=== PATIENT | male | born 1980 | race Caucasian/White ===

== ENCOUNTER 2017-01-29 12:44 | Emergency (ER) | payer MEDICARE, OTHER ==
[~2017-01-29] VITALS: Ht 175.3 cm; Wt 75.0 kg
[2017-01-29 12:51] VITALS: BP 115/73; PULSE 98; RESP 20; O2SAT 96
[2017-01-29] MEDS ORDERED: LIDOCAINE HCL 1% 50 ML VIAL INFIL ONE (13:15)
[2017-01-29] MEDS ORDERED: ASPI81CH CHEW (13:25)
[2017-01-29] MEDS ORDERED: ZYPR7.5T PO (13:25)
[2017-01-29] MEDS ORDERED: ATEN100T PO (13:25)
[2017-01-29] MEDS ORDERED: CELE20TA PO (13:25)
--- NOTE | 2017-01-29 13:32 | RADRPT ---
EXAM DATE/TIME: 01/29/2017 13:25 [place] COMPARISON: No previous studies available for comparison. INDICATIONS : Chest pain. MEDICAL HISTORY : Cardiomyopathy SURGICAL HISTORY : Pacemaker. CABG. ENCOUNTER: Initial ACUITY: 3 days PAIN SCORE: 3/10 LOCATION: Center chest FINDINGS: The lungs are clear without infiltrate, nodule, or mass. There is no appreciable pleural effusion fo r technique. Heart and mediastinum are unremarkable. There is evidence for prior median sternotomy. Left subclavian pacer wires are present with tips in the right atrium and right ventricle. CONCLUSION: No acute cardiopulmonary disease. Elijah Ruiz MD on January 29, 2017 at 13:30 Board Certified Radiologist. This report was verified electronically.
--- NOTE | 2017-01-29 14:09 | PD ---
Physical Exam Date Seen by Provider: Jan 29, 2017 Time Seen by Provider: 14:08 Narrative 36-year-old male that presents to the ED for evaluation of cyst versus abscess to the chest. I was asked by my attending to incise and drain abscess. Please refer to her note. Data Data Last Documented VS Vital Signs Date Time Temp Pulse Resp B/P Pulse Ox O2 Delivery O2 Flow Rate FiO2 01/29/17 12:51 98 20 115/73 96 Orders Chest, Pa & Lat (01/29/17 ) Lidocaine 1% Inj (50 Ml) (Xylocaine 1% I (01/29/17 13:15) Wound Culture And Gram Stain (01/29/17 14:04) Wound Care (01/29/17 14:04) MDM Medical Record Reviewed: Yes Supervised Visit with MICHAEL: No Procedures Procedure Narrative After the risks and benefits were discussed the following procedure was performed: INCISION AND DRAINAGE OF ABSCESS: The area was prepped and was sterilely draped. A subcutaneous wheal of 1 % Xylocaine with a total number 5 mL was used to anesthetize the area. The area was properly anesthetized. A number 11 scalpel was used to make a 1 -cm incision across the area of the abscess. Cultures were obtained. The abscess was drained an irrigated with normal saline. Sterile dressing applied. Diagnosis Primary Impression: Epidermoid cyst of skin of chest Patient Instructions: General Instructions Disposition: 01 DISCHARGE HOME Condition: Stable Sumanth Villalobos Jan 29, 2017 14:09
[2017-01-29] MEDS ORDERED: BACT800T5 PO (14:57)
[2017-01-29] MEDS ORDERED: CEPH-460 PO (14:57)
--- NOTE | 2017-01-29 14:57 | PD ---
HPI Chief Complaint: Skin Problem Time Seen by Provider: 13:01 Travel History International Travel<30 days: No Contact w/Intl Traveler<30days: No Traveled to known affect area: No History of Present Illness HPI Patient is a 36 year old male who comes in complaining of painful lump to his chest. He says he has had a lump since having open heart surgery in 2012. He says lately has been growing and becoming more painful. He says that this morning he woke up and there was blood on his shirt from the lump he also noticed that it was draining clear fluid. He has not had any fever or chills. He denies any chest pain. He denies any shortness of breath. PFSH Past Medical History Cardiovascular Problems: Yes (open heart surgery/ cardiomyopathy) Past Surgical History AICD: Yes Cardiac Surgery: Yes (AICD, myomyectomy?) Other Surgery: Yes Social History Alcohol Use: No Tobacco Use: Yes Substance Use: No Allergies-Medications (Allergen,Severity, Reaction): Coded Allergies: No Known Allergies (Unverified , 01/29/17) Reported Meds & Prescriptions Reported Meds & Active Scripts Active Reported Aspirin 81 Mg Chew 324 Mg CHEW ONCE Celexa (Citalopram Hydrobromide) 20 Mg Tab 20 Mg PO HS Atenolol 100 Mg Tab 100 Mg PO DAILY Zyprexa (Olanzapine) 7.5 Mg Tab 7.5 Mg PO HS Review of Systems Except as stated in HPI: all other systems reviewed are Neg General / Constitutional: No: Fever, Chills HENT: No: Headaches, Lightheadedness Cardiovascular: No: Chest Pain or Discomfort Respiratory: No: Shortness of Breath Gastrointestinal: No: Nausea, Vomiting Musculoskeletal: No: Weakness Skin: Positive Lesions Neurologic: No: Weakness, Dizziness Physical Exam Narrative GENERAL: Awake and alert, in no acute distress. SKIN: Focused skin assessment warm/dry. 2 cm fluctuant mass to the chest wall just to the right of the surgical scar. It is tender to palpation, no leakage of fluids. Erythematous in nature. HEAD: Atraumatic. Normocephalic. EYES: Pupils equal and round. No scleral icterus. ENT: Mucous membranes pink and moist. NECK: Trachea midline. No JVD. CARDIOVASCULAR: Regular rate and rhythm. No murmur appreciated. RESPIRATORY: No accessory muscle use. Clear to auscultation. Breath sounds equal bilaterally. MUSCULOSKELETAL: No obvious deformities. No clubbing. No cyanosis. No edema. NEUROLOGICAL: Awake and alert. No obvious cranial nerve deficits. Motor grossly within normal limits. Normal speech. PSYCHIATRIC: Appropriate mood and affect; insight and judgment normal. Data Data Last Documented VS Vital Signs Date Time Temp Pulse Resp B/P Pulse Ox O2 Delivery O2 Flow Rate FiO2 01/29/17 12:51 98 20 115/73 96 Orders Chest, Pa & Lat (01/29/17 ) Lidocaine 1% Inj (50 Ml) (Xylocaine 1% I (01/29/17 13:15) Wound Culture And Gram Stain (01/29/17 14:04) Wound Care (01/29/17 14:04) MDM Medical Decision Making Medical Screen Exam Complete: Yes Emergency Medical Condition: Yes Differential Diagnosis Abscess versus cellulitis versus sebaceous cyst Narrative Course Patient is a 36-year-old male who comes in complaining of a painful lump to his chest wall. Exam shows fluctuant abscess. Chest x-ray performed shows no acute abnormalities. Abscess was incised and drained by JOHN Villalobos. Patient will be discharged home with prescriptions for Bactrim and Keflex. Advised to take ANTIBIOTICS. Advised follow-up with a primary care doctor. Advised to return to the ED as needed for any worsening symptoms. Diagnosis Primary Impression: Epidermoid cyst of skin of chest Additional Impression: Cellulitis Qualified Code: L03.818 - Cellulitis of other specified site Patient Instructions: Abscess Incision and Drainage (ED), General Instructions Additional Instructions: Take all of your antibiotics. Follow up with a primary care doctor. Return to the ED as needed for any worsening symptoms. Scripts Sulfamethoxazole-Trimethoprim (Bactrim DS)800-160 Mg Tab1 Tab PO BID 7 Days Ref 0 Prov:Roxane Callahan MD 01/29/17 Cephalexin (Keflex)500 Mg [id number] Mg PO Q6H 7 Days Ref 0 Prov:Roxane Callahan MD 01/29/17 Disposition: 01 DISCHARGE HOME Condition: Stable Roxane Callahan MD Jan 29, 2017 14:57
[2017-01-29 15:00] VITALS: BP 120/77; TEMP 97.8
== END 2017-01-29 15:00 | disposition home or self-care (01) ==
LOC: NEPD 12:44
DX: L72.9 Follicular cyst of the skin and subcutaneous tissue, unspecified (principal); Z95.810 Presence of automatic (implantable) cardiac defibrillator
CPT/HCPCS: 10060; 71020; 87070; 87205

== ENCOUNTER 2017-04-03 02:49 | Emergency (ER) | payer MEDICARE, OTHER ==
[~2017-04-03] VITALS: Ht 175.3 cm; Wt 75.0 kg
[~2017-04-03 02:49] MED LIST: ASPI81CH CHEW; ATEN100T PO; BACT800T5 PO; CELE20TA PO; CEPH-460 PO; ZYPR7.5T PO
[2017-04-03 02:53] VITALS: BP 135/85; PULSE 86; RESP 16; TEMP 98.1; O2SAT 98
--- NOTE | 2017-04-03 03:22 | PD ---
HPI Chief Complaint: Medical Clearance Time Seen by Provider: 03:14 Travel History International Travel<30 days: No Contact w/Intl Traveler<30days: No Traveled to known affect area: No History of Present Illness HPI 36 year-old male presents to the emergency department by private transportation for complaint of 3 weeks of intermittent bleeding from the anterior chest wall where he is undergone previous sternotomy. Patient states she has seen once before for this and was treated for a cyst/abscess and took a course of antibiotic symptoms seem to improve however the past 2 weeks symptoms have recurred. Patient recently established with a primary care provider but has not contacted a provider regarding this concern. Patient states she has not been able to follow-up with the original sports internship and cardiothoracic surgeon who performed the myomectomy due to history of hypertrophic cardiomyopathy. Patient has had no fever or chills. Patient is not diabetic. Patient is taking an aspirin daily and no other medications. PFSH Past Medical History Cardiovascular Problems: Yes (open heart surgery/ cardiomyopathy) Diminished Hearing: No Tetanus Vaccination: Unknown Influenza Vaccination: No Past Surgical History AICD: Yes Cardiac Surgery: Yes (AICD, myomyectomy?) Genitourinary Surgery: Yes (vasectomy) Other Surgery: Yes Social History Alcohol Use: No Tobacco Use: Yes Substance Use: No Allergies-Medications (Allergen,Severity, Reaction): Coded Allergies: No Known Allergies (Unverified , 04/03/17) Reported Meds & Prescriptions Reported Meds & Active Scripts Active Bactrim DS (Sulfamethoxazole-Trimethoprim) 800-160 Mg Tab 1 Tab PO BID Bactrim DS (Sulfamethoxazole-Trimethoprim) 800-160 Mg Tab 1 Tab PO BID 7 Days Reported Aspirin 81 Mg Chew 324 Mg CHEW ONCE Celexa (Citalopram Hydrobromide) 20 Mg Tab 20 Mg PO HS Atenolol 100 Mg Tab 100 Mg PO DAILY Zyprexa (Olanzapine) 7.5 Mg Tab 7.5 Mg PO HS Review of Systems Except as stated in HPI: all other systems reviewed are Neg General / Constitutional: No: Fever, Chills HENT: No: Congestion Cardiovascular: No: Chest Pain or Discomfort Respiratory: No: Shortness of Breath Gastrointestinal: No: Abdominal Pain Genitourinary: No: Flank Pain Musculoskeletal: No: Pain Skin: Positive Lumps ( x 4 years) Neurologic: No: Weakness Psychiatric: No: Anxiety Hematologic/Lymphatic: No: Lymph Node Enlargement Physical Exam Narrative GENERAL: Well-developed well-nourished male in no acute distress no respiratory distress SKIN: Warm and dry. HEAD: Normocephalic. EYES: No scleral icterus. No injection or drainage. NECK: Supple, trachea midline. No JVD or lymphadenopathy. CARDIOVASCULAR: Regular rate and rhythm without murmurs, gallops, or rubs. Chest wall: Midline overlying sternotomy scar small area 1 cm x 1 cm area of erythema with pinpoint blood draw with direct palpation nonfluctuant. No increased warmth. Mild tenderness to palpation. No protruding or visible sternotomy wires noted. Sternotomy wire is mildly palpable along area of soft tissue swelling. RESPIRATORY: Breath sounds equal bilaterally. No accessory muscle use. GASTROINTESTINAL: Abdomen soft, non-tender, nondistended. MUSCULOSKELETAL: No cyanosis, or edema. BACK: Nontender without obvious deformity. No CVA tenderness. Data Data Last Documented VS Vital Signs Date Time Temp Pulse Resp B/P Pulse Ox O2 Delivery O2 Flow Rate FiO2 04/03/17 02:53 98.1 86 16 135/85 98 Room Air Orders Wound Culture And Gram Stain (04/03/17 03:25) Lidocaine Pf 1% Inj (Xylocaine-Mpf 1% In (04/03/17 03:30) MDM Medical Decision Making Medical Screen Exam Complete: Yes Emergency Medical Condition: Yes Medical Record Reviewed: Yes Differential Diagnosis Cysts, seroma, abscess, subcuticular sternotomy wire Narrative Course Patient with small area of soft tissue swelling 1 cm x 1 cm with 2 cm area mild erythema without active drainage most likely scar tissue/cyst and subacute/ chronic fluid collection status post sternotomy with recent I&D for possible abscess. No fever no chills no induration with small focal area of erythema no purulent drainage although scant blood slightly cloudy. Pinpoint red blood with direct pressure is noted. At this point patient has had insignificant bleeding from the site site is non-tenting non-pointing, slightly fluctuant suspect small fluid collections/seroma. Patient would benefit from site being incised possibly redirection or clipping of the sternotomy wires and excising any cyst from the area. Patient will need referral to general surgery/back to his thoracic surgeon for this intervention. Concern due to cloudiness of expressed blood for secondary infectious or early abscess process as indication at this time for I&D. Will extend out antibiotic coverage times one week. Patient seen for same 01/2017 CXR identifies sternotomy wire near skin surface. Diagnosis Primary Impression: Inflamed sebaceous cyst Additional Impression: Abscess of chest wall Referrals: General Surgeon as needed Primary Care Physician 2 days Patient Instructions: General Instructions Additional Instructions: Follow-up care primary care provider for referral to general surgery or back to your thoracic surgeon for addressing this ongoing concern Complete course of antibiotic as prescribed Recommend two-day wound check for packing removal due to the emergency Department or with your primary care provider Monitor temperature for fever take as needed acetaminophen/Tylenol for fever 100.4F or greater or for minor discomfort Return to the emergency department for any concerns or change in condition Med/Other Pt SpecificInfo: Prescription(s) given Scripts Cephalexin (Keflex)500 Mg [id number] Mg PO QID 7 Days Ref 0 Prov:Gaby Simpson MD 04/03/17 Sulfamethoxazole-Trimethoprim (Bactrim DS)800-160 Mg Tab1 Tab PO BID #20 TAB Ref 0 Prov:Gaby Simpson MD 04/03/17 Disposition: 01 DISCHARGE HOME Condition: Stable Gaby Simpson MD Apr 03, 2017 03:22
[2017-04-03] MEDS ORDERED: LIDOCAINE HCL 1% PF 30 ML VIAL INFIL ONE (03:30)
[2017-04-03] MEDS ORDERED: BACT800T5 PO (03:32)
[2017-04-03] MEDS ORDERED: CEPH-460 PO (03:54)
[2017-04-03] MEDS ORDERED: SULFAMETHOXAZOLE-TRIMETHOPRIM DS 800-160 MG TAB PO ONE (04:00)
--- NOTE | 2017-04-03 04:02 | PD ---
Physical Exam Date Seen by Provider: Apr 03, 2017 Time Seen by Provider: 03:58 Narrative Skin: Patient has a cystic structure to the anterior chest over his midline surgical site. The area measures approximately 3 x 3 cm. Positive fluctuance. No pointing. Data Data Last Documented VS Vital Signs Date Time Temp Pulse Resp B/P Pulse Ox O2 Delivery O2 Flow Rate FiO2 04/03/17 02:53 98.1 86 16 135/85 98 Room Air Orders Wound Culture And Gram Stain (04/03/17 03:25) Lidocaine Pf 1% Inj (Xylocaine-Mpf 1% In (04/03/17 03:30) Sulfamet-Trimeth Ds 800-160 Mg (Bactrim (04/03/17 04:00) MDM Medical Record Reviewed: Yes Supervised Visit with MICHAEL: Yes Differential Diagnosis MDM: High Differential diagnoses: Abscess, folliculitis, cellulitis, lymphangitis, abrasion, contact dermatitis Narrative Course An incision and drainage has been performed Procedures Procedure Narrative I&D abscess: After the risks and benefits were discussed the following procedure was performed. The skin is prepped and draped in the usual sterile fashion using Betadine. The abscess is anesthetized with 1% lidocaine. After adequate anesthesia, an 11 blade scalpel is used to make a [-] centimeter central incision. Perulant material is expressed and cultured. The wound is cleansed deeply using dilute Betadine and peroxide on Q-tips. The wound is packed open using iodoform gauze. A clean dressing is applied. The patient tolerated the procedure well. There was no complications. Follow-up instructions were given to the patient. Diagnosis Primary Impression: Inflamed sebaceous cyst Additional Impression: Abscess of chest wall Referrals: General Surgeon as needed Primary Care Physician 2 days Patient Instructions: General Instructions Additional Instruction: Follow-up care primary care provider for referral to general surgery or back to your thoracic surgeon for addressing this ongoing concern Complete course of antibiotic as prescribed Recommend two-day wound check for packing removal due to the emergency Department or with your primary care provider Monitor temperature for fever take as needed acetaminophen/Tylenol for fever 100.4F or greater or for minor discomfort Return to the emergency department for any concerns or change in condition Med/Other Pt SpecificInfo: Prescription(s) given, Wound Care Scripts Cephalexin (Keflex)500 Mg [id number] Mg PO QID 7 Days Ref 0 Prov:Gaby Simpson MD 04/03/17 Sulfamethoxazole-Trimethoprim (Bactrim DS)800-160 Mg Tab1 Tab PO BID #20 TAB Ref 0 Prov:Gaby Simpson MD 04/03/17 Disposition: 01 DISCHARGE HOME Condition: Stable Etienne Hansen Apr 03, 2017 04:02
== END 2017-04-03 04:08 | disposition home or self-care (01) ==
LOC: NEPC 02:49
DX: L72.3 Sebaceous cyst (principal); L02.213 Cutaneous abscess of chest wall; Z72.0 Tobacco use; Z79.899 Other long term (current) drug therapy; Z79.82 Long term (current) use of aspirin
CPT/HCPCS: 10060; 86403; 87070; 99284

== ENCOUNTER 2017-04-04 00:11 | Emergency (ER) | payer MEDICARE, OTHER ==
[~2017-04-04] VITALS: Ht 175.3 cm; Wt 75.0 kg
[2017-04-04 00:13] VITALS: BP 131/80; PULSE 93; RESP 16; TEMP 98.1; O2SAT 96
--- NOTE | 2017-04-04 01:09 | PD ---
HPI Chief Complaint: Wound/Suture/Staple Re-Check Time Seen by Provider: 00:50 Travel History International Travel<30 days: No Contact w/Intl Traveler<30days: No Traveled to known affect area: No History of Present Illness HPI Patient's 36-year-old male presented to the emergency department for reevaluation after packing fell out of his I&D site. Patient was seen and evaluated in the emergency department on 04/03/17 at 0400. An I&D was performed at that time. Patient's no new complaints. PFSH Past Medical History Hx Anticoagulant Therapy: Yes Cardiovascular Problems: Yes (cardiomyopathy) Diminished Hearing: No Past Surgical History AICD: Yes Cardiac Surgery: Yes (AICD, myomyectomy?) Genitourinary Surgery: Yes (vasectomy) Other Surgery: Yes Social History Alcohol Use: No Tobacco Use: Yes Substance Use: No Allergies-Medications (Allergen,Severity, Reaction): Coded Allergies: No Known Allergies (Unverified , 04/04/17) Reported Meds & Prescriptions Reported Meds & Active Scripts Active Keflex (Cephalexin) 500 Mg Capsule 500 Mg PO QID 7 Days Bactrim DS (Sulfamethoxazole-Trimethoprim) 800-160 Mg Tab 1 Tab PO BID Bactrim DS (Sulfamethoxazole-Trimethoprim) 800-160 Mg Tab 1 Tab PO BID 7 Days Reported Aspirin 81 Mg Chew 324 Mg CHEW ONCE Celexa (Citalopram Hydrobromide) 20 Mg Tab 20 Mg PO HS Atenolol 100 Mg Tab 100 Mg PO DAILY Zyprexa (Olanzapine) 7.5 Mg Tab 7.5 Mg PO HS Review of Systems Except as stated in HPI: all other systems reviewed are Neg Skin: Positive Other (incision to the anterior chest wall) Physical Exam Narrative GENERAL: Well-developed, well-nourished, alert male. SKIN: Warm and dry. 1 cm X 0.75 cm midline incision to anterior chest wall, no erythema or exudate noted. HEAD: Normocephalic. EYES: No scleral icterus. No injection or drainage. NECK: Supple, trachea midline. No JVD or lymphadenopathy. CARDIOVASCULAR: Regular rate and rhythm without murmurs, gallops, or rubs. RESPIRATORY: Breath sounds equal bilaterally. No accessory muscle use. GASTROINTESTINAL: Abdomen soft, non-tender, nondistended. MUSCULOSKELETAL: No cyanosis, or edema. BACK: Nontender without obvious deformity. No CVA tenderness. Data Data Last Documented VS Vital Signs Date Time Temp Pulse Resp B/P Pulse Ox O2 Delivery O2 Flow Rate FiO2 04/04/17 00:13 98.1 93 16 131/80 96 Room Air MDM Medical Decision Making Medical Screen Exam Complete: Yes Emergency Medical Condition: Yes Interpretation(s) Vital Signs Date Time Temp Pulse Resp B/P Pulse Ox O2 Delivery O2 Flow Rate FiO2 04/04/17 00:13 98.1 93 16 131/80 96 Room Air Differential Diagnosis Abscess versus cellulitis versus protruding sternotomy wire versus other Narrative Course Patient's 36-year-old male presenting to emergency for reevaluation after packing fell out of his I&D site. Patient is concerned because he had open heart surgery/myomectomy several years ago and since that time he has felt this if the sternotomy wire was protruding towards the skin. He has been unable to follow-up at the [facility] due to insurance reasons. He recently established with a new primary care provider. He has no other complaints at this time, his vital signs are stable. Previous site is clean and dry, there is no foul odor or drainage noted. Packing was replaced. Patient was advised to return to emergency department in 48 hours for reevaluation, he was given strict return precautions. Patient will continue previously prescribed antibiotics. He verbalized understanding of instructions. Patient stable for discharge. Diagnosis Primary Impression: Wound check, abscess Referrals: Primary Care Physician 2 days Patient Instructions: Abscess Follow-up (ED), Abscess Incision and Drainage (ED ), General Instructions Additional Instructions: Follow-up with your primary doctor Return to emergency department a 48 hours for reevaluation, return sooner for any new or worsening symptoms Complete course of previously prescribed antibiotics Med/Other Pt SpecificInfo: No Change to Meds Disposition: 01 DISCHARGE HOME Condition: Stable Lyric Smith Apr 04, 2017 01:09
== END 2017-04-04 01:20 | disposition home or self-care (01) ==
LOC: NEPD 00:11
DX: Z48.01 Encounter for change or removal of surgical wound dressing (principal); Z79.01 Long term (current) use of anticoagulants; I42.9 Cardiomyopathy, unspecified; Z72.0 Tobacco use
CPT/HCPCS: 99282

== ENCOUNTER 2017-04-06 01:38 | Emergency (ER) | payer MEDICARE, OTHER ==
[~2017-04-06] VITALS: Ht 175.3 cm; Wt 75.0 kg
[2017-04-06 01:40] VITALS: BP 131/81; PULSE 96; RESP 16; TEMP 98; O2SAT 97
--- NOTE | 2017-04-06 02:39 | PD ---
HPI Chief Complaint: Skin Problem Time Seen by Provider: 02:16 Travel History International Travel<30 days: No Contact w/Intl Traveler<30days: No Traveled to known affect area: No History of Present Illness HPI Patient's a 36-year-old male presenting to emergency department due to a sternotomy wire protruding from his chest wall. Patient was seen and evaluated 2 days ago for what appeared to be an abscess on his chest wall, and I and D was performed. Patient returned last night for reevaluation after packing fell out. At that time there was no visible sternotomy wire, the incision was repacked the patient was discharged home. He presents tonight with minimal bleeding and a visible sternotomy wire protruding approximately 2 mm. He denies any fevers, chills, nausea, vomiting, chest pain, shortness of breath. PFSH Past Medical History Hx Anticoagulant Therapy: Yes Cardiovascular Problems: Yes (cardiomyopathy) Diminished Hearing: No Immunizations Current: Yes Tetanus Vaccination: Unknown Influenza Vaccination: No Past Surgical History AICD: Yes Cardiac Surgery: Yes (AICD, myomyectomy) Genitourinary Surgery: Yes (vasectomy) Other Surgery: Yes Social History Alcohol Use: No Tobacco Use: Yes Substance Use: No Allergies-Medications (Allergen,Severity, Reaction): Coded Allergies: No Known Allergies (Unverified , 04/06/17) Reported Meds & Prescriptions Reported Meds & Active Scripts Active Keflex (Cephalexin) 500 Mg Capsule 500 Mg PO QID 7 Days Bactrim DS (Sulfamethoxazole-Trimethoprim) 800-160 Mg Tab 1 Tab PO BID 7 Days Reported Aspirin 81 Mg Chew 324 Mg CHEW ONCE Celexa (Citalopram Hydrobromide) 20 Mg Tab 20 Mg PO HS Atenolol 100 Mg Tab 100 Mg PO DAILY Zyprexa (Olanzapine) 7.5 Mg Tab 7.5 Mg PO HS Review of Systems Except as stated in HPI: all other systems reviewed are Neg Skin: Positive Other (incision to anterior chest wall with visible sternotomy wire) Physical Exam Narrative GENERAL: Well-nourished, well-developed patient. SKIN: Focused skin assessment warm/dry. Incision to anterior chest wall from previous I&D, no erythema, induration, foul odor noted. There is blood noted to dressing, scant bleeding noted, in the center is a visible metallic fragment which would be consistent with a sternotomy wire, it is protruding 1-2 mm. HEAD: Normocephalic. EYES: No scleral icterus. No injection or drainage. NECK: Supple, trachea midline. No JVD or lymphadenopathy. CARDIOVASCULAR: Regular rate and rhythm without murmurs, gallops, or rubs. RESPIRATORY: Breath sounds equal bilaterally. No accessory muscle use. GASTROINTESTINAL: Abdomen soft, non-tender, nondistended. MUSCULOSKELETAL: No cyanosis, or edema. BACK: Nontender without obvious deformity. No CVA tenderness. Data Data Last Documented VS Vital Signs Date Time Temp Pulse Resp B/P Pulse Ox O2 Delivery O2 Flow Rate FiO2 04/06/17 01:40 98.0 96 16 131/81 97 MDM Medical Decision Making Medical Screen Exam Complete: Yes Emergency Medical Condition: Yes Medical Record Reviewed: Yes Interpretation(s) Vital Signs Date Time Temp Pulse Resp B/P Pulse Ox O2 Delivery O2 Flow Rate FiO2 04/06/17 01:40 98.0 96 16 131/81 97 Differential Diagnosis Foreign object versus abscess versus wound dehiscence versus other Narrative Course Patient is a 36-year-old male presenting to the emergency department for evaluation due to protruding sternotomy wire from previous I&D site on anterior chest wall. Patient's vital signs are stable, there are no signs or symptoms of infection. Discussed with my attending physician Dr. Ordonez who recommended discussing case with cardiothoracic surgeon. I discussed exam findings with Dr. Prasad who recommended placing a dressing on the wound and having patient follow up in the office. Patient had a wound culture performed with the initial I&D 2 days ago, final report is still pending but it does show immature growth of gram-positive turner. Patient is currently on Bactrim and Keflex that he was prescribed on 04/03/17. He was encouraged to continue with these antibiotics as previously prescribed. Wound care provided, patient was given strict return precautions. Patient verbalized understanding of instructions. Patient is stable for discharge. Diagnosis Primary Impression: Protruding sternal wires Qualified Code: T81.89XA - Protruding sternal wires, initial encounter Referrals: Gabe Ni MD 1 day Patient Instructions: General Instructions Additional Instructions: Follow-up with Dr. Prasad in his office, call to schedule an appointment. The office staff know that you were seen and evaluated in the emergency department and case was discussed with Dr. Prasad. Return to emergency department immediately for any new or worsening symptoms Keep wound clean and dry, cover with nonocclusive dressing. Take medications as directed Med/Other Pt SpecificInfo: Prescription(s) given, No Change to Meds Disposition: 01 DISCHARGE HOME Condition: Stable Lyric Smith Apr 06, 2017 02:39
== END 2017-04-06 03:00 | disposition home or self-care (01) ==
LOC: NEPD 01:38
DX: T82.598A Other mechanical complication of other cardiac and vascular devices and implants, initial encounter (principal); I42.9 Cardiomyopathy, unspecified; Z72.0 Tobacco use; Z79.82 Long term (current) use of aspirin; Z79.899 Other long term (current) drug therapy
CPT/HCPCS: 99282

== ENCOUNTER 2017-04-08 15:11 | Emergency (ER) | payer MEDICARE, OTHER ==
[~2017-04-08] VITALS: Ht 175.3 cm; Wt 72.0 kg
[2017-04-08 15:14] VITALS: BP 128/84; PULSE 92; RESP 20; TEMP 98.2; O2SAT 98
[2017-04-08 16:09] LABS: AUTOMATED NEUTROPHIL # 3.8 TH/MM3 (1.8-7.7); BASOPHIL # 0.1 TH/MM3 (0-0.2); BASOPHIL % 0.8 % (0.0-2.0); EOSINOPHIL # 0.2 TH/MM3 (0-0.4); HEMATOCRIT 45.5 % (39.0-51.0); HEMO FLAGS DIFF FINAL; LYMPH % 27.2 % (9.0-44.0); LYMPHOCYTE # 1.8 TH/MM3 (1.0-4.8); MEAN CELL VOLUME 93.4 FL (80.0-100.0); MEAN CORPUSCULAR HEMOGLOBIN 31.5 PG (27.0-34.0); MEAN CORPUSCULAR HGB CONC 33.7 % (32.0-36.0); MONO % 12.1 % (0.0-8.0); NEUT % 56.9 % (16.0-70.0); PLATELET COUNT 166 TH/MM3 (150-450); RED BLOOD COUNT 4.87 MIL/MM3 (4.50-5.90); RED CELL DISTRIBUTION WIDTH 13.4 % (11.6-17.2); WHITE BLOOD COUNT 6.8 TH/MM3 (4.0-11.0)
[2017-04-08 16:33] LABS: BICARBONATE 30.5 MEQ/L (21.0-32.0); POTASSIUM 4.7 MEQ/L (3.5-5.1)
--- NOTE | 2017-04-08 16:35 | PD ---
HPI Chief Complaint: Abnormal Results Time Seen by Provider: 15:41 Travel History International Travel<30 days: No Contact w/Intl Traveler<30days: No Traveled to known affect area: No History of Present Illness HPI This is a 36-year-old male who presents to the emergency department with a history of hypertrophic cardiomyopathy having been at a preop appointment with Dr. Ni for removal of exposed sternal wires when he had an EKG which is abnormal and he was sent to the emergency department. Patient says he's been completely asymptomatic with no new chest pain, shortness of breath, diaphoresis , vomiting or nausea recently. He has been told that he has an abnormal EKG in the past. Most of his care has been at the [facility]. [facility] Past Medical History Hx Anticoagulant Therapy: Yes (81 MG DAILY ) Cardiovascular Problems: Yes Chemotherapy: No Cerebrovascular Accident: No Diabetes: No Diminished Hearing: No Respiratory: No Immunizations Current: Yes ?: Not Past Surgical History AICD: Yes Cardiac Surgery: Yes (AICD, myomyectomy) Genitourinary Surgery: Yes (vasectomy) Hysterectomy: No Other Surgery: Yes Social History Alcohol Use: No Tobacco Use: Yes Substance Use: No Allergies-Medications (Allergen,Severity, Reaction): Coded Allergies: No Known Allergies (Unverified , 04/08/17) Reported Meds & Prescriptions Reported Meds & Active Scripts Active Keflex (Cephalexin) 500 Mg Capsule 500 Mg PO QID 7 Days Bactrim DS (Sulfamethoxazole-Trimethoprim) 800-160 Mg Tab 1 Tab PO BID 7 Days Reported Aspirin 81 Mg Chew 324 Mg CHEW ONCE Celexa (Citalopram Hydrobromide) 20 Mg Tab 20 Mg PO HS Zyprexa (Olanzapine) 7.5 Mg Tab 7.5 Mg PO HS Review of Systems Except as stated in HPI: all other systems reviewed are Neg Physical Exam Narrative GENERAL: Thin, chronically ill-appearing SKIN: Focused skin assessment warm and dry. HEAD: Atraumatic. Normocephalic. EYES: Pupils equal and round. No injection or drainage. ENT: Moist mucous membranes NECK: Trachea midline. CARDIOVASCULAR: Regular rate and rhythm. No murmur appreciated. Pectus incavatum, bandage over the sternum is clean dry and intact, AICD in the left upper chest wall. RESPIRATORY: Clear to auscultation. Breath sounds equal bilaterally. GASTROINTESTINAL: Abdomen soft, non-tender, nondistended. MUSCULOSKELETAL: No obvious deformities. NEUROLOGICAL: Awake and alert. No obvious cranial nerve deficits. Moving all extremities. PSYCHIATRIC: Appropriate mood and affect; insight and judgment normal. Data Data Last Documented VS Vital Signs Date Time Temp Pulse Resp B/P Pulse Ox O2 Delivery O2 Flow Rate FiO2 04/08/17 16:45 85 18 112/62 98 Room Air 04/08/17 15:14 98.2 Orders Electrocardiogram (04/08/17 ) Complete Blood Count With Diff (04/08/17 15:42) Basic Metabolic Panel (Bmp) (04/08/17 15:42) Troponin I (04/08/17 15:42) Labs Laboratory Tests Test 04/08/17 15:50 White Blood Count 6.8 TH/MM3 Red Blood Count 4.87 MIL/MM3 Hemoglobin 15.3 GM/DL Hematocrit 45.5 % Mean Corpuscular Volume 93.4 FL Mean Corpuscular Hemoglobin 31.5 PG Mean Corpuscular Hemoglobin 33.7 % Concent Red Cell Distribution Width 13.4 % Platelet Count 166 TH/MM3 Mean Platelet Volume 8.8 FL Neutrophils (%) (Auto) 56.9 % Lymphocytes (%) (Auto) 27.2 % Monocytes (%) (Auto) 12.1 % Eosinophils (%) (Auto) 3.0 % Basophils (%) (Auto) 0.8 % Neutrophils # (Auto) 3.8 TH/MM3 Lymphocytes # (Auto) 1.8 TH/MM3 Monocytes # (Auto) 0.8 TH/MM3 Eosinophils # (Auto) 0.2 TH/MM3 Basophils # (Auto) 0.1 TH/MM3 CBC Comment DIFF FINAL Differential Comment Sodium Level 139 MEQ/L Potassium Level 4.7 MEQ/L Chloride Level 106 MEQ/L Carbon Dioxide Level 30.5 MEQ/L Anion Gap 3 MEQ/L Blood Urea Nitrogen 13 MG/DL Creatinine 1.29 MG/DL Estimat Glomerular Filtration 62 ML/MIN Rate Random Glucose 88 MG/DL Calcium Level 9.1 MG/DL Troponin I 0.08 NG/ML [facility] Medical Decision Making Medical Screen Exam Complete: Yes Emergency Medical Condition: Yes Interpretation(s) Afebrile, no tachycardia, normotensive EKG: Normal sinus rhythm, ST segment elevation in the anterior leads with ST depression in the inferior lateral leads unchanged from the patient's EKG from the [facility] on October 19, 2014 which I obtained. No leukocytosis Electrolytes are reassuring Troponin is 0.08 which is likely chronic in the setting of the patient's long history of congestive heart failure and cardiomyopathy Differential Diagnosis Hypertrophic cardiomyopathy, acute myocardial infarction, pericarditis, left ventricular aneurysm Narrative Course This is a 36-year-old male who was in preop testing to have sternal wires removed when he had an EKG which read acute myocardial infarction. Patient has significant changes on his EKG due to his history of hypertrophic cardiomyopathy which are unchanged from his EKG from the [facility] October. He is completely asymptomatic. He does have a small troponin leak which is likely in the setting of his long history of cardiomyopathy. He was seen by Dr. Ni in the emergency department who agrees with discharge. Patient will be sent home and can follow-up with cardiothoracic surgery as an outpatient. Diagnosis Primary Impression: Abnormal EKG Patient Instructions: General Instructions Additional Instructions: If you develop severe chest pain, shortness of breath, sweating, lightheadedness , dizziness or difficulty breathing return to the emergency department immediately. Followup with Dr. Ni Med/Other Pt SpecificInfo: No Change to Meds Disposition: 01 DISCHARGE HOME Condition: Stable Leti Raymundo MD Apr 08, 2017 16:35
[2017-04-08 16:45] VITALS: BP 112/62; PULSE 85; RESP 18; O2SAT 98
--- NOTE | 2017-04-09 11:58 | EKG ---
Date Performed: 04/08/2017 Time Performed: 15:30:34 PTAGE: 36 years EKG: Sinus rhythm LEFT ATRIAL ENLARGEMENT Left bundle branch block Since previous tracing, no significant change noted Abnormal ECG PREVIOUS TRACING : 04/08/2017 14.24 DOCTOR: Bijan Powell Interpretating Date/Time 04/09/2017 11:57:26
== END 2017-04-08 17:03 | disposition home or self-care (01) ==
LOC: NEPD 15:11
DX: R94.31 Abnormal electrocardiogram [ECG] [EKG] (principal); I42.2 Other hypertrophic cardiomyopathy; Z79.01 Long term (current) use of anticoagulants; Z72.0 Tobacco use; T81.89XA Other complications of procedures, not elsewhere classified, initial encounter; I44.7 Left bundle-branch block, unspecified; X58.XXXA Exposure to other specified factors, initial encounter
CPT/HCPCS: 36415; 80048; 84484; 85025; 85027; 85610; 85730; 93005

== ENCOUNTER → 2017-04-08 | Outpatient (CLI) | payer MEDICARE, OTHER ==
[2017-04-08 15:15] LABS: MEAN CELL VOLUME 93.8 FL (80.0-100.0); MEAN CORPUSCULAR HEMOGLOBIN 31.6 PG (27.0-34.0); MEAN CORPUSCULAR HGB CONC 33.7 % (32.0-36.0); PLATELET COUNT 174 TH/MM3 (150-450); RED CELL DISTRIBUTION WIDTH 13.8 % (11.6-17.2); REVIEW FLAG FINAL; WHITE BLOOD COUNT 6.5 TH/MM3 (4.0-11.0)
[2017-04-08 15:25] LABS: APTT (PATIENT) 28.1 SEC (24.3-30.1); INTERNATIONAL NORMALIZED RATIO 1.1 RATIO; PROTHROMBIN TIME - PATIENT 12.1 SEC (9.8-11.6)
[2017-04-08 15:39] LABS: BICARBONATE 32.6 MEQ/L (21.0-32.0); POTASSIUM 5.2 MEQ/L (3.5-5.1)
--- NOTE | 2017-04-09 11:58 | EKG ---
Date Performed: 04/08/2017 Time Performed: 14:24:39 PTAGE: 36 years EKG: Sinus rhythm Left bundle branch block Abnormal ECG NO PREVIOUS TRACING DOCTOR: Bijan Powell Interpretating Date/Time 04/09/2017 11:57:06
== END ==
LOC: CPRE 13:59
PROVIDERS: ATTEND Thoracic Surgery (Cardiothoracic Vascular Surgery)
DX: Z01.812 Encounter for preprocedural laboratory examination (principal); Z01.810 Encounter for preprocedural cardiovascular examination; T81.89XA Other complications of procedures, not elsewhere classified, initial encounter; I44.7 Left bundle-branch block, unspecified; X58.XXXA Exposure to other specified factors, initial encounter
CPT/HCPCS: 36415; 80048; 85027; 85610; 85730; 93005

== ENCOUNTER → 2017-04-11 | Day surgery (SDC) | payer MEDICARE, OTHER ==
[~2017-04-11] VITALS: Ht 175.3 cm; Wt 75.6 kg
[~2017-04-11] MED LIST changes: +*morphine SULFATE 8 MG/ML PERIprocedure ONLY ONE; -ATEN100T PO; +CHLORHEXIDINE GLUCONATE 2 % 1 PACK (2 CLOTHS) TOPICAL PRN; +DO NOT ADM ANY ANTICOAGULANT DRUGS PRN; +FAMOTIDINE 20 MG/2 ML VIAL ONE; +INSULIN HUMAN REGULAR 1,000 UNITS/10 ML VIAL SQ PRN; +LACTATED RINGER'S 1000 ML IV PRN; +METOPROLOL TARTRATE 25 MG TAB PO PRN; +MIDAZOLAM HCL 2 MG/2 ML VIAL ONE; +ONDANSETRON HCL 4 MG/2 ML VIAL IV PUSH ONE; +PHENYLEPH/NS 1000 MCG/10 ML SYR IV ONE; +POVIDONE IODINE 5% (ANTISEPSIS KIT) 4 APPLICATIONS EACH NARE PRN; +PROPOFOL 200 MG/20 ML AMP IV ONE; +SODIUM CHLORID 0.9% 500 ML IV PRN; +fentaNYL CITRATE 250 MCG/5 ML AMP ONE
[2017-04-11 11:04] VITALS: BP 107/73; PULSE 83; RESP 16; TEMP 98.2; O2SAT 97
--- NOTE | 2017-04-11 11:45 | RADRPT ---
EXAM DATE/TIME: 04/11/2017 10:47 [facility] COMPARISON: CHEST PA & LAT, January 29, 2017, 13:25. INDICATIONS : Evaluate for pneumonia, pneumothorax and communicable disease. Pre-op for removal of sternal wires. MEDICAL HISTORY : Cardiovascular disease. SURGICAL HISTORY : Pacemaker. Myomectomy. ENCOUNTER: Initial ACUITY: 1 day PAIN SCORE: 4/10 LOCATION: chest FINDINGS: Postsurgical features of prior median sternotomy. Dual-lead AICD device with battery pack obscuring p ortion of the left upper lobe. Lungs are clear. Cardiomediastinal contours are within normal limits. Bony thorax is intact. CONCLUSION: 1. No acute cardiopulmonary disease. Santhosh Hopson MD on April 11, 2017 at 11:42 Board Certified Radiologist. This report was verified electronically.
--- NOTE | 2017-04-11 13:43 | PD.OP ---
cc: Moni Ni MD Operative Report Date of Surgery: Apr 11, 2017 Preoperative Diagnosis: (1) Protruding sternal wires Postoperative Diagnosis: same Procedure: Removal of protruding sternal wire Anesthesia: Dr. Diaz Surgeon: Moni Ni Dustless Operator(s): Gabe HERMOSILLO Operation and Findings: After a time out, the patient was prepped and draped. The area over this wire was already opened. The wire was grabbed and cut with a electric wirer. Two wire fragments were removed down to the sternal table. The wound was irrigated and closed in 2 layers. Patient was transferred to PACU following which he will be discharged home. Moni Ni MD Apr 11, 2017 13:43
[2017-04-11 15:15] VITALS: BP 112/78; PULSE 71; RESP 16; TEMP 97; O2SAT 97
== END | disposition home or self-care (01) ==
LOC: HCVO 10:11
PROVIDERS: ATTEND Thoracic Surgery (Cardiothoracic Vascular Surgery)
DX: T85.898A Other specified complication of other internal prosthetic devices, implants and grafts, initial encounter (principal); I42.9 Cardiomyopathy, unspecified; F41.9 Anxiety disorder, unspecified; F32.9 Major depressive disorder, single episode, unspecified; Y83.8 Other surgical procedures as the cause of abnormal reaction of the patient, or of later complication, without mention of misadventure at the time of the procedure; Y71.3 Surgical instruments, materials and cardiovascular devices (including sutures) associated with adverse incidents
CPT/HCPCS: 00400; 20670; 71010; J2250; J2270; J2370; J2405; J3010